=== PATIENT | female | born 1995 | race Caucasian/White ===

== ENCOUNTER 2020-04-12 10:30 | Outpatient (CLI) | payer OTHER ==
--- NOTE | 2020-04-12 13:54 | Ultrasound Report ---
PROCEDURE: Pelvic w/Transvaginal INDICATIONS: IRREGULAR MENSTRUATION TECHNIQUE: Real-time scanning was performed of the pelvic organs, with image documentation. Additional endovagi nal scanning was necessary due to incomplete visualization of the adnexal and endometrial structures by transabdominal scanning. COMPARISON: None. FINDINGS: Transabdominal scanning: Limited scanning through the kidneys shows no hydronephrosis. A smaller katya e fluid can be seen within the right adnexal region posteriorly, which is likely physiologic. Endovaginal scanning: Uterus: Uterus is normal in size at 7.4 x 3.4 x 4.6 cm. The uterus demonstrates a heterogeneous marilyn earance, yet without millicent focal fibroids seen. The endometrium measures 11 mm in combined thickness. Ovaries: The right ovary measures 2.2 x 2.3 x 2.4 cm and the left ovary measures 3.4 x 1.7 x 1.8 cm . Less than 12 follicles can be seen involving each ovary. Within the left ovary, there is a complex cyst seen that measures up to 2.1 cm. No adnexal masses are seen. IMPRESSION: No imaging explanation is found for the patient's presenting symptoms. Likely hemorrhagic cyst seen involving the left ovary. Please consider a short-term follow-up ultras ound in 6 weeks to ensure resolution/improvement. Reviewed by: Arturo Paredes MD on 04/12/2020 12:53 PM [facility] Approved by: Arturo Paredes MD on 04/12/2020 12:53 PM [facility] Station ID: [id number]
== END 2020-04-12 10:31 | disposition home or self-care (01) ==
LOC: DI 10:30
PROVIDERS: ATTEND Nurse Practitioner Family
DX: N92.6 Irregular menstruation, unspecified (principal); N83.202 Unspecified ovarian cyst, left side
CPT/HCPCS: 76830; 76856

== ENCOUNTER 2020-10-11 09:23 | Outpatient (CLI) | payer BC ==
--- NOTE | 2020-10-11 10:43 | XRAY Report ---
PROCEDURE: Cervical Spine 2 View INDICATIONS: CERVICALGIA TECHNIQUE: 3 view(s) of the cervical spine were acquired. COMPARISON: None. FINDINGS: Bones: No fractures or dislocations to the T1 level. The lateral masses of C1 appear intact on the odontoid view. No suspicious bony lesions. Soft tissues: No prevertebral soft tissue swelling. IMPRESSION: No evidence acute bony abnormality of the cervical spine. Reviewed by: Pepe Venegas MD on 10/11/2020 9:41 AM [facility] Approved by: Pepe Venegas MD on 10/11/2020 9:41 AM [facility] Station ID: [id number]
--- NOTE | 2020-10-11 10:44 | XRAY Report ---
PROCEDURE: Thoracic Spine 2 View INDICATIONS: CERVICALGIA TECHNIQUE: 3 views of the thoracic spine were acquired. COMPARISON: Cervical spine plain films from the same date. FINDINGS: Bones: No fractures or dislocations. No suspicious bony lesions. 12 pairs of ribs are noted, and a ppear intact where visualized. Soft tissues: No paravertebral stripe thickening. IMPRESSION: No evidence acute bony abnormality of the thoracic spine. Reviewed by: Pepe Venegas MD on 10/11/2020 9:43 AM [facility] Approved by: Pepe Venegas MD on 10/11/2020 9:43 AM [facility] Station ID: [id number]
== END 2020-10-11 09:24 | disposition home or self-care (01) ==
LOC: DI.S 09:23
PROVIDERS: ATTEND Nurse Practitioner Family
DX: M54.2 Cervicalgia (principal)